=== PATIENT | female | born 1975 | race African-American/Black ===

== ENCOUNTER 2024-07-15 23:09 | Emergency (ER) | payer SELFPAY ==
[2024-07-15 23:20] VITALS: BP 136/72
--- NOTE | 2024-07-15 23:59 | ED.GENMED ---
History of Present Illness
General
Chief Complaint: Dental Problem
Time Seen by Provider: 07/15/24 23:46
History of Present Illness
History of Present Illness:
TIME OF INITIAL ENCOUNTER: 11:55 PM
HPI: Patient presents due to upper left-sided dental pain. She also had right-sided lower dental pain over the last few months. She has not seen a dentist because she has not had insurance 'until today'. She has not had fevers. She has been
taking Tylenol without much improvement.
EXAM:
GENERAL: Well appearing but appears slightly uncomfortable related to left-sided facial pain
HEENT: Moist oral mucosa, there is some tenderness to palpation of tooth #13, minimal soft tissue swelling to the left anterior face
NEUROLOGIC: Excellent strength all extremities, no obvious coordination deficits
PSYCHIATRIC: Appropriate mental status, normal insight and judgement
EXTREMITIES: Nontender, no edema, moves all extremities equally
SKIN: No rash, no lesions
NUMBER AND COMPLEXITY OF PROBLEMS ADDRESSED AT THE ENCOUNTER
� Chronic conditions affecting care: Former smoker, tubal ligation
� Acute Exacerbation and/or Progression of Chronic Illness: This is a subacute problem
� Differential Diagnosis includes: Nonspecific dental pain, dental caries, dental fracture, dental abscess
AMOUNT AND/OR COMPLEXITY OF DATA TO BE REVIEWED AND ANALYZED
� I performed an independent evaluation of and my interpretation is:
EKG:
CT:
X-rays:
Laboratory Studies:
Other:
� Review of other/old records: The patient was seen here in 2022 with abdominal pain and was also seen here in 2017 with a dental abscess
� Clinical information was obtained by an independent historian: None needed
� Prescriptions/Medications Considered but not given:
� Further testing considered but not performed:
RISK OF COMPLICATIONS AND/OR MORBIDITY OR MORTALITY OF PATIENT MANAGEMENT
� Social determinants of health affecting care: Lives at home, states that she just received insurance today
� Discussion with other providers:
� Escalation of care including admission/observation vs risk of discharge considered: The patient was given a dental block, placed on antibiotics and also a shot of Toradol. Recommended [id number] NSAIDs.
ANY OTHER UPDATES:
Past History
Past History
ED Past Medical History: None
ED Past Surgical History:
Social History
Tobacco: Non-smoker
Alcohol: Occasional
Drug: None
Living: with family
Employment: Employed
Phy Exam
Physical Exam
Physical Exam:
See HPI
Sepsis
Sepsis Screening
Sepsis Assessment: Sepsis Ruled Out
Sepsis Screen
Sepsis Screen: Sepsis Ruled Out
Date: 07/16/24
Time: 00:16
Course
Orders/Labs/Results
Orders:
Orders
07/15/24 23:58
Clindamycin HCl [Cleocin] 300 mg PO NOW STA
07/16/24 00:00
Ketorolac [Toradol] 30 mg IM NOW STA
Vital Signs
Initial and Last Documented VS:
Initial Vital Signs
Temp Pulse Resp BP Pulse Ox
36.9 C 66 18 136/72 100
07/15/24 23:20 07/15/24 23:20 07/15/24 23:20 07/15/24 23:20 07/15/24 23:20
Last Documented Vital Signs
Temp Pulse Resp BP Pulse Ox
36.9 C 66 18 136/72 100
07/15/24 23:20 07/15/24 23:20 07/15/24 23:20 07/15/24 23:20 07/15/24 23:20
Procedures
Dentalgia
Dental Block: Nerve Block and Infiltration
Tooth Number: 13
Abcess drained?: No
Pt tolerated procedure well w/ no immediate adverse effects?: Yes
Other: Approximately 3 mL of one-to-one mixture of Marcaine and lidocaine given into the maxillogingival region above tooth #13
*Critical Care Note
Total Time (30-74mins, 75-104mins- exclusive of procedures): Not Applicable
ED Attending Note
-
Portions of this chart may have been created with voice recognition software.� Occasional wrong word or��sound alike� substitutions may have occurred due to the inherent limitations of voice recognition software.
Discharge Plan
Departure
Patient Disposition: Home (Routine Discharge)
Date of Disposition: 07/16/24
Time of Disposition: 00:01
Patient with high blood pressure during this ER visit?: Yes
Discharge Problem:
Pain, dental
Instructions: Tooth Abscess (DC), Fractured Tooth (DC), Dental Pain (DC)
Prescriptions:
New
clindamycin HCl 300 mg capsule
300 mg PO TID Qty: 21 0RF
No Action
azithromycin 250 MG tablet
500 mg PO DAILY
sennosides-docusate sodium 1 TABLET tablet
1 tab PO DAILYPRN PRN (Reason: constipation) Qty: 0 0RF
oxycodone-acetaminophen 5 MG/325 MG tablet
1 tab PO Q3HPRN PRN (Reason: SEVERE PAIN) Qty: 20 0RF
bisacodyl [OneLAX Bisacodyl] 10 MG suppository
10 mg VT DAILYPRN PRN (Reason: constipation) Qty: 0 0RF
ibuprofen 600 MG tablet
600 mg PO Q4HPRN PRN (Reason: MODERATE PAIN) Qty: 30 0RF
simethicone [Gas Relief 80 (simethicone)] 80 MG tablet,chewable
80 mg PO TIDPRN PRN (Reason: flatulence) Qty: 0 0RF
pren vit comb.1-iron cb-FA-DSS 1 TAB tablet
1 tab PO DAILY
albuterol sulfate 1 PUFF HFA aerosol inhaler
2 puff inhalation R Q4HPRN PRN (Reason: shortness of breath) Qty: 1 0RF
ibuprofen 600 MG tablet
600 mg PO TIDPRN PRN (Reason: pain) Qty: 30 0RF
clindamycin HCl 300 MG capsule
300 mg PO TID Qty: 30 0RF
docusate sodium [Colace] 100 mg capsule
100 mg PO BID Qty: 30 0RF
Referrals:
NONE,* [Family Provider] -
Activity Restrictions/Additional Instructions:
I am sending a prescription for clindamycin to your pharmacy. Return if worse or other concerns. You must follow-up with a dentist. I recommend 3-4 [id number] ibuprofen (Motrin) every 8 hours with food for a few days. Return here if worse.
Interventions
Interventions:
*Risk Screen - Suicide Last Done: 07/15/24 23:20
*Neglect/Abuse Screening Last Done: 07/15/24 23:20
Discharge Date and Time
Print Language: GUATEMAL[place]
[2024-07-16] MEDS: CLEOCIN 300 MG PO (00:15)
[2024-07-16] MEDS: TORADOL 30 MG IM (00:16)
== END 2024-07-16 00:30 | disposition home or self-care (01) ==
LOC: EMR 23:09
PROVIDERS: EMERGENCY PHYSICIAN Emergency Medicine
DX: K08.89 Other specified disorders of teeth and supporting structures (principal); Z59.71 Insufficient health insurance coverage
CPT/HCPCS: 99282; 64400; 96372